=== PATIENT | male | born 1980 | race Caucasian/White ===

== ENCOUNTER 2019-02-18 19:07 | Emergency (ER) | payer OTHER ==
[~2019-02-18] VITALS: Ht 175.3 cm; Wt 74.8 kg
[2019-02-18] VITALS (9 sets, daily range): BP systolic 99–133; BP diastolic 70–93
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
--- NOTE | 2019-02-18 19:10 | NUR ---
ED Nurse Note: XRAY AT BEDSIDE
[2019-02-18] MEDS ORDERED: Morphine Sulfate 2mg/ml Inj(IV/IM USE ONLY) IVP ONE (19:15)
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
--- NOTE | 2019-02-18 19:29 | NUR ---
ED Nurse Note: [employer] AT BEDSIDE
--- NOTE | 2019-02-18 19:39 | NUR ---
ED Nurse Note: INFORMED ERPA THAT URINE IS NOT ABLE TO BE RETRIEVED FROM PT AT THIS TIME DUE TO HIS ARM IMMOBILIZATION AND CLOTHING. ERPA, AWARE, WILL AWAIT FUTHER INSTRUCTIONS
--- NOTE | 2019-02-18 19:56 | NUR ---
ED Nurse Note: PROTOCAL FOR MODERATE SEDATION INTIATED FOR REDUCTION OF DISLOCATED RIGHT WRIST, VSS, PT AOX4, RT AT BEDSIDE, CONSENT SIGNED, ERMD AT BEDSIDE.
[2019-02-18] MEDS ORDERED: ACETAMINOPHEN-1 EAC1 ORAL (20:56)
[2019-02-18] MEDS ORDERED: IBUPROFEN800 M1 PO (20:56)
[2019-02-18] MEDS ORDERED: NORCO 5-325 TA1 EACH ORAL (21:03)
--- NOTE | 2019-02-18 21:30 | NUR ---
ER DISCHARGE NOTE: Patient is cleared to be discharged per ERMD, pt is aox4, on room air, with stable vital signs. pt was given dc and prescription instructions, pt was able to verbalize understanding, pt id band and iv site removed without complications. CRN spoke to patients mother, Juliet. pt is able to ambulate with steady gait. pt took all belongings. pt has a ride home. no signs of acute distress, aox4.
[2019-02-18] MEDS ORDERED: Propofol 200mg/20ml IV ONE (22:15)
--- NOTE | 2019-02-20 17:45 | Diagnostic Imaging Report ---
Indication: Right wrist fracture Findings: 3 views of the right wrist were obtained. After closed reduction and placement of the cast 2 views of the right wrist demonstrate improved alignment of the distal radius fracture. There is posterior displacement which has improved. Ulnar styloid fracture also noted. IMPRESSION: Improved alignment following reduction
--- NOTE | 2019-02-20 17:45 | Diagnostic Imaging Report ---
Indication: Right wrist pain COMPARISON: None Findings: 3 views of the right wrist and 2 view right forearm were obtained. Acute impacted dorsally displaced comminuted intra-articular fracture of the distal radius demonstrated. Ulnar styloid fracture also demonstrated. Soft tissue swelling noted. Remainder of the radius and ulna to the elbow appear intact. IMPRESSION: Acute fractures as described above
== END 2019-02-18 21:30 | disposition home or self-care (01) ==
LOC: EDBD 19:07 → EMR 19:30
DX: S52.501A Unspecified fracture of the lower end of right radius, initial encounter for closed fracture (principal); V49.9XXA Car occupant (driver) (passenger) injured in unspecified traffic accident, initial encounter; Y92.9 Unspecified place or not applicable; F17.200 Nicotine dependence, unspecified, uncomplicated; M25.531 Pain in right wrist
CPT/HCPCS: 25605; 29125; 73090; 73100; 73110; 96374; 96375; 99284; J2270; J2405; J2704; J7040; Z7502